=== PATIENT | male | born 1955 ===

== ENCOUNTER → 2021-02-24 | Outpatient (CLI) | payer BC ==
--- NOTE | 2021-02-24 16:09 | CONS ---
CONSULTATION DATE OF SERVICE: 02/24/2021 This 65-year-old gentleman has been evaluated in [facility] for obstructive sleep apnea-hypopnea syndrome. HISTORY OF PRESENT ILLNESS/SLEEP-WAKE EVALUATION: The patient was diagnosed with obstructive sleep apnea 16 years ago in another institution. Since that time, he has continued to use his CPAP equipment every night for the whole night. At present he is using his second machine, but it is already very old. His sleep schedule is from about 2 or 3 a.m. until 10 a.m. He has a TV set in the bedroom. He usually sleeps on the back position. According to him, with the machine he does not snore. Pressure in the machine is 12 cm of water. He is using a Mirage Activa nasal mask, large size, and he likes it. [place] Sleepiness Scale is increased at 13. Since his previous sleep study, the patient's weight has significantly increased, by about 100 pounds. PAST MEDICAL HISTORY: Positive for hypertension, hyperlipidemia, diabetes mellitus, thyroid problems, restless legs syndrome. PAST SURGICAL HISTORY: Cholecystectomy, left leg surgery for venous problems. MEDICATIONS: 1. Amlodipine 5 mg once a day. 2. Methimazole 10 mg once a day. 3. Gabapentin 300 mg 3 times a day. 4. Metoprolol 100 mg once a day. 5. Metformin 850 mg twice a day. 6. Hydrochlorothiazide 25 mg once a day. 7. Lovastatin 40 mg once a day. 8. Candesartan 15 mg once a day. 9. Novolin. SOCIAL HISTORY: Positive for smoking; quit 40 years ago. Alcohol consumption occasional. FAMILY HISTORY: Liver problems. REVIEW OF SYSTEMS: Sleepiness during the day. Occasional snoring while on CPAP. No fevers. No double vision. No recent chest pain. No shortness of breath. No abdominal pain. No bleeding episodes. No blood in the urine. No seizure episodes. PHYSICAL EXAMINATION: GENERAL: Pleasant gentleman without distress. VITAL SIGNS: BP 156/79, HR 74, RR 15, height 6 feet 1/2 inch, weight 331 pounds, body mass index 44.2, temperature 97.3, oxygen saturation at room air 96%. HEENT: PERRLA, EOMI, evaluation of oropharynx showed tongue protrudes midline. Low position of soft palate. NECK: Supple, no JVD. Thyroid is not palpable. Neck measures 20-3/4 inches in circumference. LUNGS: Clear to percussion and to auscultation. Good air exchange. No wheezing or rhonchi. HEART: S1, S2 regular. No murmurs, gallops, or rubs. ABDOMEN: Soft and nontender. Bowel sounds are present. No organomegaly appreciated. EXTREMITIES: No clubbing or cyanosis. ACTUARIAL ASSOCIATE: Awake, alert, and oriented X3. Cranial nerves 2 to 7 intact. There is no fasciculation or atrophy. noted. No focal deficits observed. IMPRESSION: 1. History of obstructive sleep apnea-hypopnea syndrome for 16 years. The patient continues to use CPAP equipment every night. Pressure is 12 cm of water. No results of previous sleep studies available. Low position of soft palate, extremely wide neck, 20-3/4 inches in circumference, sleepiness, [place] Sleepiness Scale increased to 13; obstructive sleep apnea-hypopnea syndrome. 1. Obesity. BMI 44.2. The patient's weight increased by about 100 pounds since previous sleep study in another institution. 2. Hypertension. 3. Hyperlipidemia. 4. Diabetes mellitus. 5. History of thyroid problems. 6. Restless leg symptoms. 7. Status post cholecystectomy. 8. Status post left leg surgery for venous problems. PLAN: 1. Home sleep apnea test for confirmation of obstructive sleep apnea-hypopnea syndrome. 2. Patient will need new CPAP machine with all necessary equipment, including Mirage Activa nasal large-sized mask. 3. Continue to use CPAP equipment every night for the whole night. 4. Losing weight. 5. Sleep hygiene with regular time in bed for at least 7-1/2 to 8 hours. 6. No driving if feeling sleepiness. Thank you very much for referring this patient for consultation sincerely. Thank you very much for referring this patient for consultation. Sincerely, Neal Abbasi MD, PhD, FAASM Diplomat of [employer] Sleep Medicine Board of [employer] Obedience Trainer of [facility] [place] MMODL / KASSI: [id number] /
== END ==
LOC: SLEEP 13:42
PROVIDERS: ATTEND Internal Medicine
DX: G47.33 Obstructive sleep apnea (adult) (pediatric) (principal); E66.9 Obesity, unspecified; I10 Essential (primary) hypertension; E78.5 Hyperlipidemia, unspecified; E11.9 Type 2 diabetes mellitus without complications; Z68.41 Body mass index [BMI] 40.0-44.9, adult; Z90.49 Acquired absence of other specified parts of digestive tract; Z98.890 Other specified postprocedural states; Z86.39 Personal history of other endocrine, nutritional and metabolic disease; Z79.84 Long term (current) use of oral hypoglycemic drugs; Z79.899 Other long term (current) drug therapy; Z87.891 Personal history of nicotine dependence
CPT/HCPCS: 99202; 99211

== ENCOUNTER → 2021-11-03 | Outpatient (CLI) | payer MEDICARE ==
--- NOTE | 2021-11-03 16:21 | P.PN ---
Subjective DATE: 11/03/2021 FOLLOW UP VISIT. Patient with obstructive sleep apnea hypopnea syndrome return to sleep center for follow-up visit. Recently patient had sleep study which documented obstructive sleep apnea hypopnea syndrome. Patient was initiated on new PAP therapy and today is first visit after treatment was started. Patient was was not able to use PAP equipment because pressure is too low for him. She continued to use his very old machine, which doesn't have any information about apnea-hypopnea index. Pressure in the unit 12 cm of water [place] sleepiness scale is significantly increased to 15. I adjusted pressure in new CPAP unit to 12 cm of water, ramp off. MEDICATIONS:1. Gabapentin 2 pills 3 times a day 2. Metoprolol 100 mg twice a day 3. Amlodipine 5 mg once a day 4. Hydrochlorothiazide 20 mg once a day 5. Meclizine 12.5 mg every 6 hours 6. Methimasole 10 mg twice a day 7. Clomiphene 50 mg once a day 8. Tadalafil 5 mg once a day 9. Insulin During physical exam: GENERAL: A pleasant patient without any distress. VITAL SIGNS: BP 144/72, HR 68, RR 18 , weight 327.6, temperature 97.3, oxygen saturation at room air 98 . HEENT: PERRLA, EOMI.low position of soft palate, NECK: Supple. No JVD. LUNGS: Clear to percussion and to auscultation. Good air exchange. No wheezing or rhonchi. HEART: S1, S2 regular. ABDOMEN: Soft and nontender. Slightly obese EXTREMITIES: No clubbing or cyanosis. BRUSH FABRICATION SUPERVISOR: Awake, alert, and oriented x3. No focal deficit. Impressions: 1. Obstructive sleep apnea-hypopnea syndrome. Patient was not able to use a new CPAP unit, because feel the pressure is too low for him 2. Obesity. 3. Hypertension. 4. Diabetes mellitus. 5. Hyperlipidemia. 6. History of hyperthyroidism. 7. Restless leg symptoms. 8. Status post cholecystectomy. 9. Status post left leg surgery for venous problems. Plan: 1. To use PAP equipment every night for the whole night. 2. To change air filter at least 1-2 times per month. 3. PAP unit should stay lower then position of the head. 4. Advised patient to remove all remaining water from humidifier canister daily and make it dry after each usage. Refill canister with fresh distilled water before each usage. 5. Sleep hygiene with regular time in bed for at least 8 hours. 6. Precautions related to driving. No driving if feel any sleepiness. 7. I will maintain prescription for PAP supplies including mask, tube, filters. 8. Follow up visit in 1-2 months or earlier if patient has any problems. 9. Watching and losing weight. Thank you very much for allowing me to participate in the management of your patient. Neal Abbasi MD, PhD, FAASM. Diplomat of [employer], Sleep Medicine Board by [employer] Intravenous Therapy Nurse of [facility] [place]
== END ==
LOC: SLEEP 15:35
PROVIDERS: ATTEND Internal Medicine
DX: G47.33 Obstructive sleep apnea (adult) (pediatric) (principal); Z99.89 Dependence on other enabling machines and devices; I10 Essential (primary) hypertension; E66.9 Obesity, unspecified; E11.9 Type 2 diabetes mellitus without complications; E78.5 Hyperlipidemia, unspecified; Z86.39 Personal history of other endocrine, nutritional and metabolic disease; G25.81 Restless legs syndrome; Z90.49 Acquired absence of other specified parts of digestive tract; Z98.890 Other specified postprocedural states; Z79.4 Long term (current) use of insulin
CPT/HCPCS: 99212

== ENCOUNTER → 2023-12-21 | Outpatient (CLI) | payer MEDICARE ==
[2023-12-21 11:53] VITALS: BP 136/64; PULSE 58; RESP 16; TEMP 97.9
--- NOTE | 2023-12-21 12:35 | P.PROGSL ---
Subjective DATE: 12/21/2023 FOLLOW UP VISIT. Patient with obstructive sleep apnea hypopnea syndrome return to sleep center for follow-up visit. Information from previous visit have been reviewed. Previous visit was at October 2021. Patient is using PAP equipment every night for the whole night, getting PAP supplies in time. The patient does not have significant problems with the mask, PAP unit and humidification. [place] sleepiness scale is increased to 12. I checked information from PAP unit. PAP unit pressure 12 cm H2O. Usage is 100% for more then 4 hours, average 7.75 hours per night. Leak is increased to 30.2 l/m, patient needs to replace mask. Apnea Hypopnea Index is 0.4, which is normal. MEDICATIONS have been reviewed, please see below. During physical exam: GENERAL: A pleasant patient without any distress. VITAL SIGNS: Please see below, weight is 327 lbs. HEENT: PERRLA, EOMI.low position of soft palate, [place] 3. NECK: Supple. No JVD. LUNGS: Clear to percussion and to auscultation. Good air exchange. No wheezing or rhonchi. HEART: S1, S2 regular. ABDOMEN: Soft and nontender.[] EXTREMITIES: No clubbing or cyanosis. PACKAGING SALES REPRESENTATIVE: Awake, alert, and oriented x3. No focal deficit. Impressions: 1. Obstructive sleep apnea-hypopnea syndrome. Patient demonstrated great compliance with treatment, benefiting from treatment. 2. Obesity, BMI 44.9, no changes of weight since previous visit. 3. Diabetes mellitus, hemoglobin A1c recently according to patient 6.7. 4. Hypertension. 5. Artery disease, status post recent stent insertion 6. Hyperlipidemia. 7. History of hyperthyroidism. 8. Status post left leg surgery for venous problems. 9.Status post cholecystectomy. Plan: 1. Continue using PAP equipment every night for the whole night. 2. Sleep hygiene with regular time in bed for at least 7.5-8 hours 3. PAP unit should stay lower then position of the head. 4. Advised patient to remove all remaining water from humidifier canister daily and make it dry after each usage. Refill canister with fresh distilled water before each usage. 5. Watching and losing weight. 6. Precautions related to driving. No driving if feel any sleepiness. 7. I will maintain prescription for PAP supplies including mask, tube, filters. 8. Follow up visit in 6-8 months or earlier if patient has any problems. Thank you very much for allowing me to participate in the management of your patient. Neal Abbasi MD, PhD, FAASM. Diplomat of [place] [employer], Sleep Medicine Board by [employer] [employer] Supervisor Nuclear Medicine of [facility] [place] cc: Harinder Gipson MD Objective - Vital Signs Vital Signs: Vital Signs Temp 97.9 F 12/21/23 11:52 Pulse 58 L 12/21/23 11:52 Resp 16 12/21/23 11:52 BP 136/64 12/21/23 11:52 Pulse Ox 97 12/21/23 11:52 FiO2 Intake & Output 12/20/23 12/21/23 12/21/23 18:59 06:59 18:59 Weight 148.325 kg Home Medications: Home Medications Medication Instructions Recorded Confirmed Type Aspirin EC [Ecotrin] 325 mg PO DAILY 12/21/23 12/21/23 History Cholecalciferol (Vitamin D3) See Rx Instructions .ROUTE .COMPLEX 12/21/23 12/21/23 History [Vitamin D3 (1250 Mcg = 50,000 Iu)] Cinnamon Bark [Cinnamon] 500 mg PO 12/21/23 History Clopidogrel Bisulfate [Clopidogrel] 75 mg PO DAILY 12/21/23 12/21/23 History Cyanocobalamin (Vitamin B-12) 1,000 mcg PO DAILY 12/21/23 12/21/23 History [Vitamin B-12] Gabapentin 300 mg PO BID 12/21/23 12/21/23 History Insulin NPH Hum/Reg Insulin Hm See Rx Instructions .ROUTE .COMPLEX 12/21/23 12/21/23 History [humuLIN 70/30 Kwikpen] Insulin Regular [humuLIN R] See Rx Instructions .ROUTE .COMPLEX 12/21/23 12/21/23 History Isosorbide Mononitrate [Isosorbide 30 mg PO DAILY 12/21/23 12/21/23 History Mononitrate ER] Magnesium Oxide [Magnesium] 500 mg PO DAILY 12/21/23 12/21/23 History Metoprolol Tartrate [Lopressor] 100 mg PO BID 12/21/23 12/21/23 History Mirabegron [Mirabegron ER] 25 mg PO DAILY 12/21/23 12/21/23 History [place]-3/Dha/Epa/Fish Oil [Fish Oil 1,000 mg PO DAILY 12/21/23 12/21/23 History 1,000 mg Softgel] Rosuvastatin [Crestor] 20 mg PO DAILY 12/21/23 12/21/23 History Zinc Gluconate [Zinc] 50 mg PO DAILY 12/21/23 12/21/23 History amLODIPine [Norvasc] 5 mg PO DAILY 12/21/23 12/21/23 History hydroCHLOROthiazide [Hydrodiuril] 25 mg PO DAILY 12/21/23 12/21/23 History metFORMIN HCL [Glucophage] 850 mg PO DAILY 12/21/23 12/21/23 History methIMAzole 10 mg PO DAILY 12/21/23 12/21/23 History tadalafiL 5 mg PO DAILY 12/21/23 12/21/23 History
== END ==
LOC: 3 N SLEEP 11:09
PROVIDERS: ATTEND Internal Medicine
CPT/HCPCS: 99212